=== PATIENT | female | born 1955 | race Caucasian/White ===

== ENCOUNTER 2016-08-20 00:03 | Emergency (ER) | payer BC ==
[~2016-08-20 00:03] MED LIST: HYDROCHLOROTHIA25 M1 PO; LOSARTAN POTASS25 M1 PO; METHIMAZOLE5 M1 PO; PROPRANOLOL HCL20 M2 PO; WAL-ZYR10 M1 PO
[2016-08-20 00:59] LABS: BASO % 0.2 % (0-2); EOS % 1.1 % (0-7); EOSINOPHIL ABSOLUTE COUNT 0.1 tho/cmm (0.0-0.7); HCT-HEMATOCRIT 43.3 % (34.0-49.0); HGB-HEMOGLOBIN 15.4 gm/dl (12.0-15.5); LYMPH % 28.6 % (20-45); LYMPH ABSOLUTE COUNT 1.6 tho/cmm (0.8-4.5); MCH (MEAN CORPUSCULAR HGB) 33.6 pg (28.0-32.0); MCHC MEAN CORPUSCULAR HGB CONC 35.6 % (32.0-36.0); MCV (MEAN CELL VOLUME) 94.5 fl (82.0-96.0); MONO % 7.8 % (0-12); MONOCYTE ABSOLUTE COUNT 0.4 tho/cmm (0.0-1.2); NEUTROPHIL ABSOLUTE COUNT 3.5 tho/cmm (1.6-8.0); NEUTROPHIL-AUTOMATED 3.5 tho/cmm (1.6-8.0); NEUTROPHILS % 62.3 % (40-80); PLATELET COUNT 240 tho/cmm (150-450); RED BLOOD COUNT 4.58 mil/cmm (4.00-5.20); RED CELL DISTRIBUTION WIDTH 11.8 % (12.4-16.4); WHITE BLOOD COUNT 5.7 tho/cmm (4.0-10.0)
[2016-08-20 01:19] LABS: ALBUMIN 3.9 g/dl (3.5-5.0); ALKALINE PHOSPHATASE 65 U/L (33-138); ALT/SGPT 53 U/L (12-78); AST/SGOT 39 U/L (10-40); BLOOD UREA NITROGEN 8 mg/dl (6-24); CARBON DIOXIDE-VENOUS 29 mmol/L (22-32); CREATININE 0.62 mg/dl (0.50-1.10); GLUCOSE 83 mg/dL (70-110); MAGNESIUM 2.3 mg/dl (1.3-2.6); eGFR VALUE FOR BLACK >90 mL/Min
[2016-08-20 01:36] LABS: ANION GAP 13 mmol/L (0-20); BILIRUBIN,TOTAL 0.9 mg/dl (0-1.5); CHLORIDE 102 mmol/l (96-110); SODIUM 140 mmol/L (135-145); TSH-THYROID STIMULATING HORM. 2.49 uIU/ml (0.40-3.80)
[2016-08-20 01:47] LABS: ESR-ERYTHROCYTE SED RATE 1 mm/hr (0-30)
[2016-08-20 02:04] LABS: URINE APPEARANCE HAZY; URINE BILIRUBIN NEGATIVE (NEG); URINE BLOOD MODERATE (NEG); URINE COLOR YELLOW; URINE GLUCOSE (UA) NEGATIVE (NEG); URINE KETONE MODERATE (NEG); URINE LEUKOCYTE ESTERASE NEGATIVE (NEG); URINE NITRITE NEGATIVE (NEG); URINE PROTEIN NEGATIVE (NEG)
[2016-08-20 02:31] LABS: URINE EPITHELIAL CELLS RARE /[HPF] (0-10); URINE RBC 0-3 /[HPF] (0-5); URINE WBC 0 /[HPF] (0-5)
== END 2016-08-20 02:48 ==
LOC: EDMED 00:03
PROVIDERS: Emergency Medicine
DX: I10 Essential (primary) hypertension (principal); J32.9 Chronic sinusitis, unspecified; R42 Dizziness and giddiness; F17.200 Nicotine dependence, unspecified, uncomplicated